=== PATIENT | female | born 1980 | race African-American/Black ===

== ENCOUNTER 2020-11-14 18:31 | Emergency (ER) | payer MEDICAID ==
[~2020-11-14] VITALS: Ht 167.6 cm; Wt 74.0 kg
[2020-11-14 22:05] VITALS: BP 120/72
== END 2020-11-14 22:05 | disposition home or self-care (01) ==
LOC: ER 18:31
DX: S52.501A Unspecified fracture of the lower end of right radius, initial encounter for closed fracture (principal); V49.9XXA Car occupant (driver) (passenger) injured in unspecified traffic accident, initial encounter; W22.11XA Striking against or struck by driver side automobile airbag, initial encounter; Y93.89 Activity, other specified; Y92.89 Other specified places as the place of occurrence of the external cause; Y99.8 Other external cause status
CPT/HCPCS: 29125; 73090; 73110; 81025; 99284; A4565